=== PATIENT | female | born 1970 | race Caucasian/White ===

== ENCOUNTER 2024-08-14 10:14 | Emergency (ER) | payer OTHER ==
[2024-08-14] MEDS ORDERED: IBUPROFEN 200 MG TAB PO ONE (10:35)
[2024-08-14] MEDS ORDERED: HYDROCODONE/APAP 10/325 TAB ONE (10:36)
--- NOTE | 2024-08-14 11:48 | RAD REPORT ---
EXAMINATION: XR Ankle Left 3 View CLINICAL INDICATION: Female, 53 years old. [facility] ER BED 6 TECHNIQUE: 3 view radiographs of the left ankle were obtained. COMPARISON: No prior exam. FINDINGS: Displaced fractures of the medial, posterior, and lateral malleolus, with lateral subluxati on of the ankle joint, and eversion. Soft tissue swelling about the ankle. Incidentally noted accessory ossicle adjacent to the cuboid. IMPRESSION: Trimalleolar ankle fracture with lateral subluxation of the ankle joint.
[2024-08-14] MEDS ORDERED: MORPHINE 4 MG/ML SYR ONE (12:38)
--- NOTE | 2024-08-14 13:29 | RAD REPORT ---
EXAMINATION: XR LEFT ANKLE CLINICAL INDICATION: Female, 53 years old. SWELLING TECHNIQUE: 3 view radiograph of the left ankle were obtained. COMPARISON: 08/14/2024 FINDINGS: Trimalleolar fracture is again noted. There has been reduction in the degree of fracture fr agment displacement, however tibiotalar displacement persists. Small calcaneal spurs. Bone detail is somewhat reduced by splint material.
--- NOTE | 2024-08-14 13:39 | ER ---
Nurse's Notes [facility] Name: Lisa Mckeon Age: 53 yrs Sex: Female : 1970 Arrival Date: 08/14/2024 Time: 10:14 Bed 6 Private MD: Diagnosis: Fracture of medial malleolus;Fracture of lateral malleolus Presentation: 08/14 10:36 Chief complaint: Patient states: she fell last night and twisted her left ankle when ap3 ambulating. patient is complaining of swelling and pain of 10/10 on the pain scale at this time. patient reports taking "3 ibuprofen 45 mins TRAINING ASSISTANT". Coronavirus screen: At this time, the client does not indicate any symptoms associated with coronavirus-19. Ebola Screen: No symptoms or risks identified at this time. Initial Sepsis Screen: Does the patient meet any 2 criteria? No. Patient's initial sepsis screen is negative. Does the patient have a suspected source of infection? No. Patient's initial sepsis screen is negative. Risk Assessment: Do you want to hurt yourself or someone else? Patient reports no desire to harm self or others. Onset of symptoms was August 13, 2024. 10:36 Method Of Arrival: Wheelchair ap3 10:36 Acuity: GALINA 3 ap3 Triage Assessment: 10:39 General: Appears uncomfortable, Behavior is calm, cooperative, appropriate for age. ap3 Pain: Complains of pain in left foot Pain currently is 10 out of 10 on a pain scale. Pain began suddenly, 1 day ago. Neuro: Level of Consciousness is awake, alert, obeys commands, Oriented to person, place, time, situation. Cardiovascular: Pulses are absent in left dorsalis pedis artery. Respiratory: Airway is patent Respiratory effort is even, unlabored, Respiratory pattern is regular, symmetrical. Musculoskeletal: Swelling present in left foot. MANUSCRIPTS CURATOR: 14:15 LMP N/A - Post-menopause, Not me1 Historical: - Allergies: 10:39 No Known Allergies; ap3 - Immunization history:: Client reports receiving the 2nd dose of the Covid vaccine, Flu vaccine is not up to date. - Infectious Disease History:: Denies. - Social history:: Smoking status: Patient reports the use of cigarette tobacco products. Screenin:40 [facility] ED Fall Risk Assessment (Adult) History of falling in the last 3 months, ap3 including since admission Yes- single mechanical fall (1 pt) Confusion or Disorientation No (0 pts) Intoxicated or Sedated No (0 pts) Impaired Gait Yes (1 pt) Mobility Assist Device Used No (0 pt) Altered Elimination No (0 pt) Score/Fall Risk Level 0 - 2 = Low Risk Oriented to surroundings, Maintained a safe environment, Educated pt \\T\\ family on fall prevention, incl call for assistance when getting out of bed, Assessed \\T\\ reinforced patient's understanding of fall precautions, Hourly rounding (assess needs \\T\\ fall precautionary measures) done, Used ambulatory aids as needed (educated on \\T\\ assisted with). Abuse screen: Denies threats or abuse. Nutritional screening: No deficits noted. Tuberculosis screening: No symptoms or risk factors identified. Assessment: 12:00 General: Appears uncomfortable, unkempt, well developed, well nourished, Behavior is me1 calm, cooperative, appropriate for age, Reports she fell last night and twisted her left ankle when ambulating. patient is complaining of swelling and pain of 10/10 on the pain scale at this time. patient reports taking "3 ibuprofen 45 mins TRAINING ASSISTANT". Pain: Complains of pain in anterior aspect of left ankle Pain does not radiate. Pain currently is 10 out of 10 on a pain scale. Quality of pain is described as sharp, Pain began suddenly, Is continuous. Neuro: Level of Consciousness is awake, alert, obeys commands, Oriented to person, place, time, situation, Appropriate for age. Cardiovascular: Patient's skin is warm and dry. Respiratory: Airway is patent Respiratory effort is even, unlabored, Respiratory pattern is regular, symmetrical. GI: No signs and/or symptoms were reported involving the gastrointestinal system. : No signs and/or symptoms were reported regarding the genitourinary system. EENT: No signs and/or symptoms were reported regarding the EENT system. Derm: Skin is intact, is healthy with good turgor, Skin is pink, warm \\T\\ dry. Musculoskeletal: Reports pain in left foot. Injury Description: she fell last night and twisted her left ankle when ambulating. patient is complaining of swelling and pain of 10/10 on the pain scale at this time. patient reports taking "3 ibuprofen 45 mins TRAINING ASSISTANT". Vital Signs: 10:36 BP 166 / 105; Pulse 78; Resp 18; Temp 98.2; Pulse Ox 98% on R/A; Weight 68.04 kg; ap3 Height 5 ft. 7 in. ; Pain 10/10; 11:36 BP 159 / 95; Pulse 66; Pulse Ox 99% on R/A; ap3 12:00 BP 138 / 100; Pulse 59; Resp 16; Pulse Ox 98% ; me1 13:00 BP 129 / 117; Pulse 64; Resp 17; Pulse Ox 98% ; me1 13:45 BP 144 / 93; Pulse 60; Resp 18; Temp 98.4; Pulse Ox 96% ; Pain 6/10; me1 10:36 Body Mass Index 23.49 (68.04 kg, 170.18 cm) ap3 10:36 Pain Scale: Adult ap3 13:45 Pain Scale: Adult me1 [place] Coma Score: 10:40 Eye Response: spontaneous(4). Motor Response: obeys commands(6). Verbal Response: ap3 oriented(5). Total: 15. Trauma Score (Adult): 10:40 Eye Response: spontaneous(1); Verbal Response: oriented(1); Motor Response: obeys ap3 commands(2); Systolic BP: > 89 mm Hg(4); Respiratory Rate: 10 to 29 per min(4); [place] Score: 15; Trauma Score: 12 ED Course: 10:20 Patient arrived in ED. al6 10:24 Lit Pineda MD is Attending Physician. jj9 10:39 Triage completed. ap3 10:41 Patient maintains SpO2 saturation greater than 95% on room air. ap3 10:41 Arm band placed on right wrist. ap3 11:29 Ankle Left 3 View In Process Unspecified. EDMS 11:35 Kaylee Triplett, AMINAH is Primary Nurse. ap3 11:35 Patient has correct armband on for positive identification. Bed in low position. Call ap3 light in reach. Side rails up X 1. 12:00 No provider procedures requiring assistance completed. me1 12:00 Provided Education on: POC. Verbalized understanding.. Client placed on continuous me1 cardiac and pulse oximetry monitoring. NIBP monitoring applied. Pulse ox on. NIBP on. 12:11 Inserted saline lock: 22 gauge in right antecubital area, using aseptic technique. zm Flushed with 10 mL NS. 13:18 Lexus Daly, RN is Primary Nurse. me1 13:19 Crutch training done. Orthoglass splint: Posterior short lleg splint applied on left me1 leg. stirrup splint applied on left leg. 13:23 Ankle Left 2 View In Process Unspecified. EDMS 13:36 Salvador De La Torre MD is Referral Physician. jj9 14:15 IV discontinued, intact, bleeding controlled, No redness/swelling at site. Pressure me1 dressing applied. Administered Medications: 10:41 Drug: [place] PO 10 mg-325 mg 1 tabs PO once Route: PO; ap3 12:54 Follow up: Response: No adverse reaction; Pain is unchanged, physician notified me1 10:41 Not Given (patient took TRAINING ASSISTANT): [id number] mg PO once ap3 13:08 Drug: morphine IVP or IV 8 mg IVP once over 4 mins; at bedside Route: IVP; Infused me1 Over: 4 mins; Site: right antecubital; 14:12 Follow up: Response: No adverse reaction; Pain is decreased me1 Medication: 11:35 VIS not applicable for this client. ap3 Outcome: 13:39 Discharge ordered by . jj9 14:15 Discharged to home via wheelchair, with family, me1 14:15 Condition: stable 14:15 Discharge instructions given to patient, Instructed on discharge instructions, follow up and referral plans. medication usage, crutch walking, Demonstrated understanding of instructions, follow-up care, medications, crutch walking, Prescriptions given X 1, 14:17 Patient left the ED. me1 Signatures: Dispatcher [employer] EDFL Kaylee Triplett, RN RN ap3 Shelley Sadler Michelle, AMINAH RN me1 Aurora Mayer6 Lit Pineda MD MD jj9 Corrections: (The following items were deleted from the chart) 14:12 10:36 Chief complaint: Patient states: she fell last night and twisted her left ankle me1 when ambulating. patient is complaining of swelling and pain of 10/10 on the pain scale at this time. patient reports taking "3 ibuprofen 45 mins TRAINING ASSISTANT" ap3
--- NOTE | 2024-08-14 13:39 | EDPHYS ---
Physician Documentation [facility] Name: Lisa Mckeon Age: 53 yrs Sex: Female : 1970 Arrival Date: 08/14/2024 Time: 10:14 Bed 6 Private MD: ED Physician Lit Pineda HPI: 08/14 10:36 Onset: The symptoms/episode began/occurred suddenly, last night, 12 hour(s) ago, and jj9 became persistent. Severity of symptoms: in the emergency department the symptoms are actually worse, a " 10" out of "10". 53-year-old female comes to the emergency department complaining of left ankle pain after slip and twisting her left ankle last night while getting out of a car. The patient chose not to come to the emergency department but today the pain is unbearable. There is swelling, tenderness and discoloration to the left ankle area. Denies any other injuries. Pain is in 10 out of 10.. BENEFITS CONSULTANT: 14:15 LMP N/A - Post-menopause, Not me1 Historical: - Allergies: 10:39 No Known Allergies; ap3 - Immunization history:: Client reports receiving the 2nd dose of the Covid vaccine, Flu vaccine is not up to date. - Infectious Disease History:: Denies. - Social history:: Smoking status: Patient reports the use of cigarette tobacco products. ROS: 10:38 MS/Extremity: Left ankle pain, swelling and bruising jj9 20:08 Constitutional: Negative for fever, chills, and weight loss, Eyes: Negative for injury, jj9 pain, redness, and discharge, ENT: Negative for injury, pain, and discharge, Neck: Negative for injury, pain, and swelling, Cardiovascular: Negative for chest pain, palpitations, and edema, Respiratory: Negative for shortness of breath, cough, wheezing, and pleuritic chest pain, Abdomen/GI: Negative for abdominal pain, nausea, vomiting, diarrhea, and constipation, Back: Negative for injury and pain, MS/Extremity: left ankle swelling, bruising and deformity Skin: Negative for injury, rash, and discoloration, Neuro: Negative for headache, weakness, numbness, tingling, and seizure, Allergy/Immunology: Negative for hives, rash, and allergies, Endocrine: Negative for neck swelling, polydipsia, polyuria, polyphagia, and marked weight changes, Exam: 10:38 MS/ Extremity: Significant edema to the ankle and proximal foot with bruising and jj9 discoloration. Normal pulses and sensory, decreased range of motion due to pain and swelling. 20:09 Constitutional: This is a well developed, well nourished patient who is awake, alert, jj9 and in no acute distress. Head/Face: Normocephalic, atraumatic. Eyes: Pupils equal round and reactive to light, extra-ocular motions intact. Lids and lashes normal. Conjunctiva and sclera are non-icteric and not injected. Cornea within normal limits. Periorbital areas with no swelling, redness, or edema. ENT: Nares patent. No nasal discharge, no septal abnormalities noted. Tympanic membranes are normal and external auditory canals are clear. Oropharynx with no redness, swelling, or masses, exudates, or evidence of obstruction, uvula midline. Mucous membranes moist. Neck: Trachea midline, no thyromegaly or masses palpated, and no cervical lymphadenopathy. Supple, full range of motion without nuchal rigidity, or vertebral point tenderness. No Meningismus. Chest/axilla: Normal chest wall appearance and motion. Nontender with no deformity. No lesions are appreciated. Cardiovascular: Regular rate and rhythm with a normal S1 and S2. No gallops, murmurs, or rubs. Normal PMI, no JVD. No pulse deficits. Respiratory: Lungs have equal breath sounds bilaterally, clear to auscultation and percussion. No rales, rhonchi or wheezes noted. No increased work of breathing, no retractions or nasal flaring. Abdomen/GI: Soft, non-tender, with normal bowel sounds. No distension or tympany. No guarding or rebound. No evidence of tenderness throughout. Back: No spinal tenderness. No costovertebral tenderness. Full range of motion. MS/ Extremity: swelling, bruising and deformity to left ankle Neuro: Awake and alert, GCS 15, oriented to person, place, time, and situation. Cranial nerves II-XII grossly intact. Motor strength 5/5 in all extremities. Sensory grossly intact. Cerebellar exam normal. Normal gait. Vital Signs: 10:36 BP 166 / 105; Pulse 78; Resp 18; Temp 98.2; Pulse Ox 98% on R/A; Weight 68.04 kg; ap3 Height 5 ft. 7 in. ; Pain 10/10; 11:36 BP 159 / 95; Pulse 66; Pulse Ox 99% on R/A; ap3 12:00 BP 138 / 100; Pulse 59; Resp 16; Pulse Ox 98% ; me1 13:00 BP 129 / 117; Pulse 64; Resp 17; Pulse Ox 98% ; me1 13:45 BP 144 / 93; Pulse 60; Resp 18; Temp 98.4; Pulse Ox 96% ; Pain 6/10; me1 10:36 Body Mass Index 23.49 (68.04 kg, 170.18 cm) ap3 10:36 Pain Scale: Adult ap3 13:45 Pain Scale: Adult me1 [place] Coma Score: 10:40 Eye Response: spontaneous(4). Motor Response: obeys commands(6). Verbal Response: ap3 oriented(5). Total: 15. Trauma Score (Adult): 10:40 Eye Response: spontaneous(1); Verbal Response: oriented(1); Motor Response: obeys ap3 commands(2); Systolic BP: > 89 mm Hg(4); Respiratory Rate: 10 to 29 per min(4); [place] Score: 15; Trauma Score: 12 Procedures: 13:35 Splinting: using Orthoglass splint, applied by myself. tech. post reduction film - jj9 reveals improved alignment, Examined by me, post splint application: neurovascular intact, 2+ distal pulses palpable, Patient tolerated well. MDM: 10:24 Medical Screening Exam initiated jj9 10:39 Differential diagnosis: contusion, fracture, sprain, strain, Dislocation. Data jj9 reviewed: vital signs, nurses notes. Independent interpretation of the following test(s) in the Emergency Department. 13:31 Management of patient was discussed with the following: Orthopedic surgeon Dr. Simon jj9 . Medication response: morphine markedly relieved the patient's pain. Symptoms have improved. ED course: 53-year-old female comes emergency department complaining of left ankle swelling and pain after a fall last night on initial exam there is significant swelling and bruising to the ankle. X-rays were ordered showing 3 malleolar fracture with lateral joint subluxation. The patient was placed on trilaminar splint and longitudinal traction was applied with improvement of the AP views however there is still subluxation. I discussed the case with Dr. Simon the patient will be seen in office this afternoon. Advised nonweightbearing to left lower extremity, the patient will be put on crutches and pain medications will send to pharmacy. The patient and family understand agree with the plan.. 08/14 10:43 Order name: Ankle Left 3 View; Complete Time: 11:56 EDMS 08/14 13:23 Order name: Ankle Left 2 View; Complete Time: 20:11 EDMS 08/14 14:00 Order name: Crutches; Complete Time: 14:00 me1 Administered Medications: 10:41 Drug: [place] PO 10 mg-325 mg 1 tabs PO once Route: PO; ap3 12:54 Follow up: Response: No adverse reaction; Pain is unchanged, physician notified me1 10:41 Not Given (patient took CHILD CARE AIDE): [id number] mg PO once ap3 13:08 Drug: morphine IVP or IV 8 mg IVP once over 4 mins; at bedside Route: IVP; Infused me1 Over: 4 mins; Site: right antecubital; 14:12 Follow up: Response: No adverse reaction; Pain is decreased me1 Disposition Summary: 08/14/24 13:39 Discharge Ordered Notes: Location: Home jj9 Condition: Stable jj9 Diagnosis - Fracture of medial malleolus jj9 - Fracture of lateral malleolus jj9 Followup: jj9 - With: Salvador Simon MD - When: Today - Reason: Discharge Instructions: - Discharge Summary Sheet jj9 - Ankle Fracture jj9 - Complex Ankle Fracture jj9 Forms: - Medication Reconciliation Form jj9 - Antibiotic Education jj9 - Prescription Opioid Use jj9 - Patient Portal Instructions jj9 - Leadership Thank You Letter jj9 Prescriptions: - Tramadol 50 mg Oral Tablet - take 1 tablet ORAL route every 8 hours as needed; 12 tablet; Refills: 0, jj9 Product Selection Permitted Signatures: Dispatcher [employer] EDMS Kaylee Triplett RN RN ap3 Lexus Daly RN RN me1 Lit Pineda MD MD jj9 Corrections: (The following items were deleted from the chart) 13:23 13:15 Ankle Left 3 View+[email or web address] ordered. EDMS EDMS
[2024-08-14 14:34] VITALS: BP 144/93; TEMP 98.4; O2SAT 96
== END 2024-08-14 14:17 | disposition home or self-care (01) ==
LOC: ER 10:14
PROC: 2W3RX1Z Immobilization of Left Lower Leg using Splint (ICD-10-PCS; principal; 2024-08-14)
DX: S82.52XA Displaced fracture of medial malleolus of left tibia, initial encounter for closed fracture (principal); S82.62XA Displaced fracture of lateral malleolus of left fibula, initial encounter for closed fracture
CPT/HCPCS: 96374; 99284